=== PATIENT | female | born 1945 | race Caucasian/White ===

== ENCOUNTER → 2016-08-22 | Outpatient (CLI) | payer MEDICARE, BC ==
--- NOTE | 2016-08-22 16:54 | PE ---
EXAMINATION TYPE: PET CT fusion skull to thigh DATE OF EXAM: 08/22/2016 3:28 PM COMPARISON: No prior films at this location. Prior PET/CT: None HISTORY: Solitary pulmonary nodule TECHNIQUE: Following the intravenous administration of 10.04 mCi of F-18 FDG, whole body images are performed from the skull base to the midthigh. Images are reviewed on the computer in the coronal, a xial, and sagittal planes. Reconstructed rotating images are created on independent workstation and reviewed on the computer. A localization and attenuation correction CT is performed in conjunction with the PET scan. DLP: 437.35 mGycm SCAN: Initial Blood glucose: 84 mg/dL Average Mediastinum SUV: 1.93 Average Liver SUV: 2.65 FINDINGS: NECK: No abnormal uptake THORAX: No abnormal uptake. Punctate nodularities in the anterior right middle lobe, series 3 image 1 01. SUV in this region 0.6. This may be too small to register as hypermetabolic or is normal. Monitor ing with chest CT is recommended. If this nodule should change repeat PET scan could be performed. ABDOMEN: No abnormal uptake PELVIS: No abnormal uptake OSSEOUS STRUCTURES: No abnormal uptake LOCALIZATION CT: Punctate nodule in the right middle lobe series 3 image 101 measures 0.3 cm. Coronar y artery calcification is present. The ascending thoracic aorta at the level of the main pulmonary ar heydi is 3.7 cm. The main pulmonary artery at the bifurcation is 2.6 cm. COMPARISON: No prior imaging available. IMPRESSION: 1. Normal PET/CT. Recommendations: 1. Follow-up CT chest in 6 months.
== END | disposition home or self-care (01) ==
LOC: RADPETMAIN 13:34
PROVIDERS: ATTEND Family Medicine
DX: R91.1 Solitary pulmonary nodule (principal); R91.8 Other nonspecific abnormal finding of lung field
CPT/HCPCS: 78815; A9552

== ENCOUNTER 2020-04-09 08:04 | Day surgery (SDC) | payer MEDICARE, BC ==
[2020-04-08 11:02] VITALS: BMI 31.6
[~2020-04-09 08:04] MED LIST: ALPRAZolam 0.25 MG TAB PO PRN; ALPRAZolam 0.5 MG TAB PO PRN; ASPIRIN 325 MG TAB PO ONE; NITROGLYCERIN SL TABS 0.4 MG TAB SUBLINGUAL PRN; SODIUM CHLORIDE 0.9% 1,000 ML in EMPTY BAG 1 BAG IV ONE
[2020-04-09 08:43] VITALS: TEMP 98.2
[2020-04-09] MEDS ORDERED: SODIUM CHLORIDE 0.9% 1,000 ML IV ONE (08:43)
[2020-04-09 08:56] LABS: Basophils % (A) 1 %; Eosinophils % (A) 1 %; HCT 36.1 % (34.0-46.0); HGB 12.1 gm/dL (11.4-16.0); Lymphocytes # (A) 0.7 k/uL (1.0-4.8); Lymphocytes % (A) 16 %; MCH 29.3 pg (25.0-35.0); MCHC 33.6 g/dL (31.0-37.0); MCV 87.4 fL (80.0-100.0); Mean Platelet Volume 7.5; Monocytes # (A) 0.6 k/uL (0-1.0); Monocytes % (A) 12 %; Neutrophils # (A) 3.2 k/uL (1.3-7.7); Neutrophils % (A) 68 %; Platelet Count 234 k/uL (150-450); RBC 4.13 m/uL (3.80-5.40); RDW 13.8 % (11.5-15.5); WBC 4.7 k/uL (3.8-10.6)
[2020-04-09 09:01] LABS: African American GFR (CKD) >90 (>60 ml/min/1.73 sqM); Anion Gap 4 mmol/L; Blood Urea Nitrogen 14 mg/dL (7-17); Calcium 9.2 mg/dL (8.4-10.2); Carbon Dioxide 29 mmol/L (22-30); Chloride 106 mmol/L (98-107); Glucose 120 mg/dL (74-99); Non-African American GFR(CKD) 89 (>60 ml/min/1.73 sqM); Potassium 3.7 mmol/L (3.5-5.1); Sodium 139 mmol/L (137-145)
[2020-04-09] MEDS ORDERED: MIDAZOLAM 2 MG/2 ML VIAL IV ONE (09:16)
[2020-04-09] MEDS ORDERED: LIDOCAINE 1% INJ 10MG/ML (20 ML MDV) SQ ONE (09:18)
[2020-04-09] MEDS ORDERED: fentaNYL (PF) 50 MCG/ML 2 ML AMP IV ONE (09:19)
[2020-04-09] MEDS ORDERED: IOPAMIDOL-370 50ML BTL INJ ONE (09:38)
[2020-04-09] MEDS ORDERED: IOPAMIDOL-370 125ML BTL INJ ONE (09:39)
--- NOTE | 2020-04-09 10:23 | CC ---
CARDIAC CATHETERIZATION REPORT INDICATION: Exertional shortness of breath with abnormal stress test showing anterior and anterolateral ischemia. The patient has known coronary artery disease and had prior angioplasty with stent placement of LAD and diagonal. PROCEDURE NOTE: After obtaining informed consent, left heart catheterization and coronary angiogram are performed via the right femoral artery using standard Saundra catheters. Patient tolerated the procedure well without any obvious immediate complication. A femoral angiogram was performed and decision was made for manual hemostasis as the femoral arteries are heavily calcified with moderate atherosclerotic plaque. The patient received moderate conscious sedation. Total sedation time was 21 minutes. We could not engage the right coronary artery selectively and tried both Juan and right Amplatz catheter and ultimately the small nondominant vessel was visualized on aortogram. FINDINGS: 1. HEMODYNAMICS: Left ventricular end-diastolic pressure is 16 mm. There is no significant gradient across the aortic valve. 2. AORTOGRAM: Aortogram was performed to locate the right coronary artery. It is a small nondominant vessel. I do not see any aortic aneurysm, dissection or significant aortic regurgitation. 3. ANGIOGRAPHIC DATA: Left main coronary artery appears calcified but is free of significant stenosis. Divides into left anterior descending coronary artery and circumflex coronary artery. Circumflex coronary artery is a large dominant vessel and is free of significant stenosis. LAD is heavily calcified. The previously stented segment in the diagonal and LAD appears patent with mild to moderate nonobstructive disease. Right coronary artery is a small nondominant vessel visualized on the aortogram. CONCLUSION: Patent stents within the left anterior descending artery and diagonal without focal hemodynamically significant new lesions. Stress test is probably a false positive. Stress test and her management is going to be in the form of aggressive risk factor modification and medical therapy. MMODL / IJN: [id number] /
--- NOTE | 2020-04-09 10:23 | LTR ---
April 09, 2020 Re: Sara Arredondo Dear Karly: I performed cardiac catheterization on Sara Arredondo. A detailed catheterization note is enclosed for your records. She recently presented to you with symptoms of exertional shortness of breath and a stress test you performed has reversible perfusion defect involving the anterior and anterolateral wall due to which she refer her to me for cardiac catheterization. The patient has known CAD and had prior angioplasty with stent placement of LAD and right coronary artery. On her cardiac catheterization, I did not find significant focal obstructive disease and her stress test is probably a false positive stress test. Thank you for giving me the privilege to participate in the care of this pleasant lady. Sincerely, MD ASHLEY Troncoso / RADHA: [id number] /
[2020-04-09] MEDS ORDERED: RX INFO: IV CONTRAST WAS GIVEN 1 EACH MISC MISCELLANE PRN (11:05)
[2020-04-09 12:37] VITALS: RESP 16
[2020-04-09 16:55] VITALS: BP 144/67; PULSE 65
== END 2020-04-09 16:55 | disposition home or self-care (01) ==
LOC: CATHCVL 08:04
PROVIDERS: ATTEND Internal Medicine Cardiovascular Disease
DX: I25.10 Atherosclerotic heart disease of native coronary artery without angina pectoris (principal); R94.39 Abnormal result of other cardiovascular function study; R06.02 Shortness of breath; R51.9 Headache, unspecified; R53.83 Other fatigue; G47.10 Hypersomnia, unspecified; I70.203 Unspecified atherosclerosis of native arteries of extremities, bilateral legs; I10 Essential (primary) hypertension; F17.210 Nicotine dependence, cigarettes, uncomplicated; E78.2 Mixed hyperlipidemia; E78.00 Pure hypercholesterolemia, unspecified; Z95.5 Presence of coronary angioplasty implant and graft; Z79.82 Long term (current) use of aspirin; Z79.899 Other long term (current) drug therapy; Z82.49 Family history of ischemic heart disease and other diseases of the circulatory system
CPT/HCPCS: 93458; 93567; 80048; 85025; C1894; C1769; J2250; J2001; J3010; Q9967 ×2